=== PATIENT | male | born 1950 | race Caucasian/White ===

== ENCOUNTER 2020-08-22 05:10 | Emergency (ER) | payer MEDICARE ==
[2020-08-22 05:48] LABS: BASOPHIL 0.4 % (0-2); HCT 48.7 % (42.0-52.0); HGB 15.9 g/dl (13.2-18.0); MCHC 32.6 g/dL (32.0-36.0); MCV 85.7 fL (78.0-100.0); NEUTROPHIL 75.2 % (41-80); NRBC 0; PLT 230 K/uL (150-400); RBC 5.68 M/uL (4.70-6.00); RDW 14.5 % (11.5-14.0); WBC 12.8 K/uL (4.0-10.5)
[2020-08-22 05:59] LABS: BUN/CREAT RATIO (CALC) 16.2 RATIO; CREATININE 1.11 mg/dL (0.67-1.17); POTASSIUM 3.8 mmol/L (3.5-5.1)
[2020-08-22 06:20] LABS: ALBUMIN 3.6 g/dL (3.4-5.0); BILIRUBIN - DIRECT 0.2 mg/dL (0.00-0.20); BILIRUBIN - TOTAL 0.8 mg/dL (0.2-1.0); GLOBULIN (CALCULATION) 3.7 g/dL; TOTAL PROTEIN 7.3 g/dL (6.4-8.2)
[2020-08-22] MEDS ORDERED: HYDROCODON-ACE1 EAC2 PO (08:36)
== END 2020-08-22 09:15 | disposition home or self-care (01) ==
LOC: FER 05:10
PROVIDERS: Student in an Organized Health Care Education/Training Program
DX: S22.42XA Multiple fractures of ribs, left side, initial encounter for closed fracture (principal); R10.12 Left upper quadrant pain; I48.91 Unspecified atrial fibrillation; J44.9 Chronic obstructive pulmonary disease, unspecified; I50.9 Heart failure, unspecified; F17.210 Nicotine dependence, cigarettes, uncomplicated; Z86.73 Personal history of transient ischemic attack (TIA), and cerebral infarction without residual deficits; Z79.01 Long term (current) use of anticoagulants; Z79.82 Long term (current) use of aspirin; Z79.899 Other long term (current) drug therapy; W00.0XXA Fall on same level due to ice and snow, initial encounter; Y92.009 Unspecified place in unspecified non-institutional (private) residence as the place of occurrence of the external cause
CPT/HCPCS: 36415; 71101; 71260; 80048; 80076; 83690; 84484; 85025; J2405; J3010; Q9967

== ENCOUNTER 2020-08-27 09:52 | Inpatient (IN) | payer MEDICARE ==
[~2020-08-27] VITALS: Ht 175.3 cm; Wt 81.8 kg
[~2020-08-27 09:52] MED LIST: HYDROCODON-ACE1 EAC2 PO
[2020-08-27 10:41] LABS: BASOPHIL 0.4 % (0-2); EOSINOPHIL 0.7 % (0-7); HCT 51.9 % (42.0-52.0); LYMPHOCYTE 5.8 % (15-48); MCH 28.1 pg (25.0-31.0); MCHC 32.8 g/dL (32.0-36.0); MCV 85.9 fL (78.0-100.0); MONOCYTE 9.7 % (0-12); MPV 10.6 fL (6.0-9.5); NRBC 0; PLT 253 K/uL (150-400); RBC 6.04 M/uL (4.70-6.00); WBC 14.9 K/uL (4.0-10.5)
[2020-08-27 11:16] LABS: INR 1.25 (0.9-1.2); PROTHROMBIN TIME 14.9 SECONDS (11.4-13.6)
[2020-08-27 11:17] LABS: PTT 33.7 SECONDS (22.2-34.7)
[2020-08-27 11:39] LABS: ALBUMIN 3.1 g/dL (3.4-5.0); ALKALINE PHOSHATASE 104 U/L (46-116); ALT 18 U/L (16-63); AST 26 U/L (15-37); BILIRUBIN - TOTAL 2.2 mg/dL (0.2-1.0); BUN 35 mg/dL (7-18); BUN/CREAT RATIO (CALC) 29.9 RATIO; C-REACTIVE PROTEIN > 18.00 mg/dL (<=0.90); CHLORIDE 103 mmol/L (98-107); CO2 (BICARBONATE) 25 mmol/L (21-32); CREATININE 1.17 mg/dL (0.67-1.17); GLOBULIN (CALCULATION) 3.7 g/dL; GLUCOSE 172 mg/dL (74-106); POTASSIUM 3.5 mmol/L (3.5-5.1); TOTAL PROTEIN 6.8 g/dL (6.4-8.2)
[2020-08-27 11:39] LABS: CORONAVIRUS 2019 SARS-COV-2 NEGATIVE (NEGATIVE); INFLUENZA A NAA NEGATIVE (NEGATIVE)
[2020-08-27] MEDS ORDERED: METOPROLOL TART25 M1 PO (13:48)
[2020-08-27] MEDS ORDERED: ASPIRIN EC81 MG PO (13:49)
[2020-08-27] MEDS ORDERED: NEXIUM 40MG CAP40 MG PO (13:50)
[2020-08-27] MEDS ORDERED: ELIQUIS5 MG PO (13:52)
[2020-08-27] MEDS ORDERED: LANTUS **100 UNITS/ IJ (14:04)
[2020-08-28 06:19] LABS: BASOPHIL 0.1 % (0-2); EOSINOPHIL 0 % (0-7); HCT 44.8 % (42.0-52.0); HGB 14.5 g/dl (13.2-18.0); LYMPHOCYTE 7.5 % (15-48); MCH 27.7 pg (25.0-31.0); MCHC 32.4 g/dL (32.0-36.0); MCV 85.7 fL (78.0-100.0); MONOCYTE 6.3 % (0-12); MPV 10.2 fL (6.0-9.5); NEUTROPHIL 85.6 % (41-80); NRBC 0; PLT 245 K/uL (150-400); RBC 5.23 M/uL (4.70-6.00); RDW 14.3 % (11.5-14.0); WBC 12.6 K/uL (4.0-10.5)
[2020-08-28 06:24] LABS: BUN/CREAT RATIO (CALC) 32.8 RATIO; CREATININE 1.16 mg/dL (0.67-1.17); MAGNESIUM 2.5 mg/dL (1.8-2.4); POTASSIUM 3.7 mmol/L (3.5-5.1)
--- NOTE | 2020-08-28 10:54 | NUR ---
PT LIVES ALONE SAYS GIRLFRIEND CAN HELP HE REPORTS HE IS INDEPENDENT WITH CARE PLEASE ADVISE OF ANY DISCHARGE NEEDS
--- NOTE | 2020-08-28 10:54 | NUR ---
SPOKE TO PATIENT; HE SAID HE WANTS TO GO TO HIS GIRLFRIEND HOUSE WITH HOME HEALTH AND ROLLING WALKER; SPOKE TO JOY ADRIANE) SHE SAID HE CAN COME TO HER HOME FOR HOME HEALTH AFTER HE IS DISCHARGED.
--- NOTE | 2020-08-28 13:16 | NUR ---
PATIENT HAS CALLED OUT A NUMBER OF TIMES IS THE LAST HOUR. STATES THAT HE CAN'T BREATH AND HE HURTS TOO MUCH. DR DALE HAS BEEN INFORMED OF THIS AND HAS JUST NOW ORDERED ADDITIONAL PAIN MEDICATIONS. I EXPLAINED TO PATIENT THAT HE NEEDED TO USE IS ISB EVERY HOUR, AT WHICH TIME HE USES IN 5 TIMES AND DID NOT GET IT TO READ ABOVE 250. I EXPLAINED TO THE PATIENT THAT HE NEEDED TO USE IT EVERY HOUR. HE THEN STATED WHY IT WAS NOT FIXING HIM. I EXPLAINED THAT HE HAD PNEUMONIA FROM COMPLICATIONS FROM THE RIB FRACTURES AND THAT IF HE HAD SAT IN A CHAIR FOR 7 DAYS THAT IT WAS NOT GOING TO BE FIXED WITHIN A DAY. IT WAS GOING TO TAKE TIME. PATIENT IS NOT HAPPY AT ALL WITH THE FACT THAT HE IS NOT FIXED.
--- NOTE | 2020-08-29 12:28 | NUR ---
08/29/20 Mr. Galvan will be going to the home of his girlfriend, Lore Serrano. A referral was made to Jennifer for a rw. A referral was made to [facility] for PT/OT and nursing. Discharge is anticipated for 08/31. Please call [facility] at [phone] if patient is discharged over the weekend. Report given to Heather. MS JONES.
[2020-08-30 08:26] LABS: BASOPHIL 0.4 % (0-2); EOSINOPHIL 0.6 % (0-7); HCT 50.4 % (42.0-52.0); HGB 16.2 g/dl (13.2-18.0); LYMPHOCYTE 22.6 % (15-48); MCH 27.6 pg (25.0-31.0); MCHC 32.1 g/dL (32.0-36.0); MCV 85.7 fL (78.0-100.0); MONOCYTE 9.5 % (0-12); MPV 9.7 fL (6.0-9.5); NRBC 0; PLT 292 K/uL (150-400); RBC 5.88 M/uL (4.70-6.00); RDW 14.1 % (11.5-14.0); WBC 10.9 K/uL (4.0-10.5)
[2020-08-30 08:42] LABS: BUN/CREAT RATIO (CALC) 30.2 RATIO; CREATININE 1.06 mg/dL (0.67-1.17); POTASSIUM 3.9 mmol/L (3.5-5.1)
--- NOTE | 2020-08-31 11:09 | NUR ---
0800 PATIENT MOVED TO CHAIR, PATIENT EDUCATED THAT GETTING UP AND MOVING AROUND WILL HELP HIS PNEUMONIA AND ALSO HELP HIM HEAL FASTER. PATIENT STATED "BUT I CANT MOVE AROUND, IT HURTS TOO BAD." PATIENT GIVEN PO PAIN MEDICATION. 0845 PATIENT STATES HE NEEDS TO GO BACK TO BED BECAUSE H "CANT STAND SITTING IN THIS CHAIR ANYMORE." PATIENT EDUACTED ON MOVING AND SITTING UP IN CHAIR BUT PATIENT IS STILL NONCOMPLIANT AND REFUSES TO STAY IN CHAIR. PATIENT MOVED TO BED AT THIS TIME.
--- NOTE | 2020-08-31 11:11 | NUR ---
1000 THIS RN AT PATIENT BEDSIDE. PATIENT DOES NOT HAVE ANY OXYGEN ON AT THIS TIME, PULSE OX SHOWS 92%. THIS RN ASKED PATIENT IF I COULD PLACE SOME O2 ON HIM AND HE REFUSED. HE STATED "I DONT NEED THAT AND I AM NOT GOING TO USE IT AT HOME." THIS RN EDUCATED PATIENT ON O2 USE AND PNUEMONIA BUT PATIENT STILL REFUSING. MD NOTIFIED. PATIENT ON PULSE OX AND IS STAYING BETWEEN 91-94% ON ROOM AIR. PATIENT ALSO EDUCATED AGAIN ON DISEASE PROCESS AND WHY HE NEEDS TO GET UP AND MOVE AROUND AND SIT IN CHAIR. PATIENT REFUSED AGAIN, STATED "I WILL MOVE MORE WHEN I GO HOME TODAY BUT IM NOT DOING IT HERE." RN REINFORCED EDUCATION. PATIENT IS REFUSING CARE AND AMBULATING TO CHAIR AT THIS TIME.
[2020-08-31] MEDS ORDERED: CEFDINIR300 MG PO (11:13)
[2020-08-31] MEDS ORDERED: VENTOLIN HFA IN18 GM INH (11:13)
[2020-08-31] MEDS ORDERED: AZITHROMYCIN250 MG PO (11:13)
[2020-08-31] MEDS ORDERED: MIRALAX17 GM PO (11:13)
[2020-08-31] MEDS ORDERED: PREDNISONE 20MG20 MG PO (11:13)
[2020-08-31] MEDS ORDERED: OXYCODONE HCL10 MG PO ×2 (11:13→11:47)
[2020-08-31] MEDS ORDERED: MOTRIN600 MG PO (11:29)
--- NOTE | 2020-08-31 12:50 | NUR ---
1230 PATIENT AND GIRLFRIEND GIVEN D/C INSTRUCTIONS. VERBALIZED UNDERSTANDING
--- NOTE | 2020-08-31 13:07 | NUR ---
6532 PATIENT GETTING [facility] WAS NOTIFIED VIA TELEPHONE
--- NOTE | 2020-08-31 14:49 | NUR ---
NOTIFIED BERTA WITH [facility] VIA TELEPHONE ABOUT PTS D/C
== END 2020-08-31 12:42 | disposition home health service (06) | DRG 194 ==
LOC: FER 09:52 → FMS 11:45
PROVIDERS: Emergency Medicine; ADMIT Internal Medicine
DX: J18.9 Pneumonia, unspecified organism (principal); S22.42XA Multiple fractures of ribs, left side, initial encounter for closed fracture; J44.1 Chronic obstructive pulmonary disease with (acute) exacerbation; J44.0 Chronic obstructive pulmonary disease with (acute) lower respiratory infection; I48.20 Chronic atrial fibrillation, unspecified; Z20.822 Contact with and (suspected) exposure to COVID-19; R07.9 Chest pain, unspecified; F17.210 Nicotine dependence, cigarettes, uncomplicated; E11.9 Type 2 diabetes mellitus without complications; R29.810 Facial weakness; E78.5 Hyperlipidemia, unspecified; K21.9 Gastro-esophageal reflux disease without esophagitis; I50.9 Heart failure, unspecified; K86.9 Disease of pancreas, unspecified; I11.0 Hypertensive heart disease with heart failure; Z91.81 History of falling; Z79.01 Long term (current) use of anticoagulants; Z79.899 Other long term (current) drug therapy; Z79.4 Long term (current) use of insulin; W00.0XXA Fall on same level due to ice and snow, initial encounter
CPT/HCPCS: 36415; 36600; 71250; 80048; 80053; 82803; 83605; 83735; 83880; 85025; 85610; 85730; 86140; 87040; 93005; 94640; 94664; 94762; J0696; J1956; J2405; J7512; U0002